=== PATIENT | female | born 1970 | race Caucasian/White ===

== ENCOUNTER 2016-05-06 10:58 | Emergency (ER) | payer BC ==
[2016-05-06 12:15] VITALS: BP 141/97
--- NOTE | 2016-05-06 12:25 | UC ---
Throat Pain/Nasal Daniel HPI - HPI Summary HPI Summary: complaint of cough , nasal congestion and sore throat that started last night today has headache cough is non- productive sore throat has resolved fever and chills last night neck and muscle aches today feels stiff today taking tylenol cold and flu and cough syrup without relief. concerned that she has the flu d/t sick co workers wants to know d/t husbands poor health status. - History of Current Complaint Chief Complaint: UCRespiratory Stated Complaint: COUGH Time Seen by Provider: 05/06/16 12:17 Hx Obtained From: Patient Hx Last Menstrual Period: iud - Allergies/Home Medications Allergies/Adverse Reactions: Allergies Allergy/AdvReac Type Severity Reaction Status Date / Time Bees Allergy Intermediate Swelling Uncoded 05/06/16 12:14 PMH/Surg Hx/FS Hx/Imm Hx Previously Healthy: Yes Endocrine History Of: Denies: Diabetes, Thyroid Disease Cardiovascular History Of: Reports: Hypertension Denies: Cardiac Disorders Respiratory History Of: Denies: COPD, Asthma GI/ History Of: Denies: Ulcer Cancer History Of: Denies: Breast Cancer - Surgical History Surgical History: Yes Surgery Procedure, Year, and Place: GB; r-knee bone spur SX; 2X deviated septum ; tonisllectomy/adenoids at 8th grade - Family History Known Family History: Positive: None Negative: Cardiac Disease, Hypertension, Diabetes - Social History Occupation: Employed Full-time Lives: With Family Alcohol Use: None Substance Use Type: None Smoking Status (MU): Never Smoked Tobacco - Immunization History Most Recent Influenza Vaccination: 2014/2015 Vaccination Up to Date: Yes Review of Systems Constitutional: Fever, Chills, Fatigue Skin: Negative Eyes: Negative ENT: Ear Ache, Nasal Discharge Respiratory: Cough Cardiovascular: Negative Gastrointestinal: Negative Genitourinary: Negative Motor: Negative Neurovascular: Negative Musculoskeletal: Negative Neurological: Negative Psychological: Negative All Other Systems Reviewed And Are Negative: Yes Physical Exam Triage Information Reviewed: Yes Appearance: No Pain Distress, Well-Nourished, Obese Vital Signs: Initial Vital Signs Temp 98.5 F 05/06/16 12:10 Pulse 96 05/06/16 12:10 Resp 18 05/06/16 12:10 BP 141/97 05/06/16 12:10 Pulse Ox 99 05/06/16 12:10 Vital Signs Reviewed: Yes Eyes: Positive: Conjunctiva Clear ENT: Positive: Pharyngeal erythema, Nasal congestion, TMs normal. Negative: TM bulging, TM red, Tonsillar swelling, Tonsillar exudate Neck: Positive: No Lymphadenopathy Respiratory: Positive: Lungs clear, Normal breath sounds, No respiratory distress Cardiovascular: Positive: RRR, No Murmur, Pulses Normal Abdomen Description: Positive: Nontender, Soft Bowel Sounds: Positive: Present Musculoskeletal: Positive: No Edema Neurological: Positive: Alert Psychological Exam: Normal Skin Exam: Normal Throat Pain/Nasal Course/Dx - Differential Dx/Diagnosis Differential Diagnosis/HQI/PQRI: Influenza, Pharyngitis, URI Provider Diagnoses: URI Discharge - Discharge Plan Condition: Stable Disposition: HOME Patient Education Materials: Upper Respiratory Infection (ED) Forms: *Work Release Referrals: Edita Maurer [Primary Care Provider] - Additional Instructions: VIRAL UPPER RESPIRATORY INFECTION (COMMON COLD) What is Viral Upper Respiratory Infection? Viral upper respiratory infection is the medical term for the common cold. Respiratory infections can be caused by either a virus or bacteria. The common cold is caused by a virus. The virus travels through the air and can be passed easily from one person to another. This is one reason that it is so important to cover your mouth when you cough or sneeze. When you cover your mouth you will get the virus on your hands. If you touch something with that hand the virus is spread to the object you touch. Because of this you should be sure to wash your hands often when you have a cold. Symptoms usually begin 1 to 3 days after the virus takes hold in your body. Other people can catch your cold even before you start to notice symptoms, which is one reason why colds are hard to prevent. Symptoms May Include: Scratchiness or tickling in the throat Sore throat Stuffy nose Generalized aches and pains Coughing or sneezing Feeling tired Treatment Recommendations: Drink plenty of clear, nonalcoholic fluids, such as water, sports drinks, or juice. For example, an average adult should drink 8 ounces every hour, a child 6 to 10 years should drink 4 ounces every hour, and a child under 6 should drink 1 to 2 ounces every hour. You should rest as much as possible. You can use a cool-mist humidifier or steam vaporizer to increase air moisture. This will make it easier to breathe. Remember that a steam vaporizer may contain hot water that can cause severe noland. If you smoke, stopsmoke irritates bronchial passages. If you are coughing up mucus, and milk seems to make the sputum thicker, do not eat or drink foods that contain milk. You want to try to cough up mucous whenever possible so that you dont get pneumonia. Do not use cough suppressant medicine without your healthcare providers [place]. You should take all medications prescribed until completely gone, or as instructed. Non-prescription medicine such as acetaminophen (Tylenol) or ibuprofen (Motrin , Advil) may help your aches, pains, and fever. Do not take someone else's medicine, or penicillin tablets that you may have saved. You could cause a more serious problem than you already have. Don't bundle up to sweat out a fever. It only makes your fever worse. If you feel cold , cover up; if you feel warm, dress lightly. Dont use non-prescription medicine with antihistamines for your cold symptoms. They may make your mouth and nose too dry, and can make the mucous you are trying to cough up too thick to cough up easily. Antihistamines are more helpful for hay fever-like symptoms.
== END 2016-05-06 13:21 | disposition home or self-care (01) ==
LOC: UCEAST 10:58
DX: J06.9 Acute upper respiratory infection, unspecified (principal)
CPT/HCPCS: 87502; 99211; G0463

== ENCOUNTER 2016-08-12 06:40 | Inpatient (IN) | payer BC, OTHER ==
--- NOTE | 2016-07-30 14:47 | HP ---
ADMISSION HISTORY AND PHYSICAL: DATE OF ADMISSION: 08/12/16 ATTENDING SURGEON: Dr. Bryson Dominguez. (dictated by JILL Diaz) CHIEF COMPLAINT: Morbid obesity. HISTORY OF PRESENT ILLNESS: This is a 45-year-old female, who first presented for bariatric evaluation in January of 2016. Her weight and dietary history are outlined in our chart record. She has been seen by the automatic coin machine mechanic and clinical psychologist. She did have lab work last September including a CBC, comprehensive metabolic profile, and TSH, all of which were in normal limits. She apparently did not have the balance of the bariatric profile and therefore that will be obtained within the next few days along with her preadmission testing. She underwent upper GI study on 01/14/16, which showed some delayed emptying of the liquid barium and a small amount of reflux. A subsequent EGD, on 05/25/16, showed a small hiatal hernia, but no evidence of chronic reflux or esophagitis. CLOtest was negative. It was not felt that manometry was necessary. She has met with Dr. Dominguez on a number of occasions and he has reviewed with her the indications for surgery, the risks, benefits, and alternatives. I have discussed with her today the expected perioperative course and she would like to proceed as scheduled with laparoscopic Elvia-en-Y gastric bypass. PAST MEDICAL HISTORY: Morbid obesity, hypertension, obstructive sleep apnea ( untreated), chronic back pain, ichthyosis vulgaris (she does not sweat), urinary incontinence. PAST SURGICAL HISTORY: Includes laparoscopic cholecystectomy, tonsillectomy and adenoidectomy, nasal septoplasty x2, right knee arthroscopy, right index finger surgery. No reported surgical or anesthesia complications. CURRENT MEDICATIONS: 1. Amlodipine 5 mg once daily. 2. Detrol LA 2 mg once daily. 3. Aleve 2 tablets b.i.d. p.r.n. for back pain (she uses about twice weekly). 4. She has a Mirena IUD. DRUG ALLERGIES: None (Percocet does cause significant nausea, but she tolerates hydrocodone). FAMILY HISTORY: Noncontributory in terms of anesthesia problems, bleeding, or clotting disorders. SOCIAL HISTORY: The patient is . She works as an cost accountant. She denies use of tobacco, drinks alcohol rarely, and denies other recreational drug use. REVIEW OF SYSTEMS: General: No recent constitutional symptoms or acute illnesses. HEENT: No problems reported. Cardiovascular: She is treated for hypertension. No history of chest pain or palpitations. She has been told at various occasions that she may have a heart murmur. No history of MS or angina. Respiratory: No history of asthma, chronic cough, or shortness of breath. She does have some environmental allergies. GI: Very rare GERD symptoms. No lower GI symptoms. She has never had a colonoscopy. : No problems reported other than urinary incontinence (she uses the Detrol usually during the work week). GENERAL SURGERY PHYSICIAN ASSISTANT: She is up to date for breast and pelvic exams within the past year. She has had mammogram within the past year. She has Mirena IUD and therefore has few if any periods. Endocrine: No diabetes or thyroid dysfunction. Musculoskeletal: She did have a left elbow fracture ( radial head) in 2015. She was evaluated recently by Dr. Ac. Neuro/Psych: Past history of depression, no current or active treatment. PHYSICAL EXAMINATION GENERAL: Well-nourished, morbidly obese female, in no acute distress. VITAL SIGNS: Height 65 inches, weight 271 pounds, BMI 45.1. Blood pressure 102 /68, pulse 72, respirations 16. HEENT: Pupils equal and round, reactive. EOMs intact. No conjunctival pallor. Oropharynx: Teeth in good repair. No intraoral lesions. NECK: No lymphadenopathy, thyromegaly, or masses. LUNGS: Clear to auscultation. No wheezes. HEART: Regular rate and rhythm. No murmur appreciated. BREASTS: Not examined. ABDOMEN: Soft, nontender to palpation. No palpable masses or organomegaly, though exam is limited by body habitus. GENITALIA: Not done. RECTAL: Not done. BACK: No spinous process or CVA tenderness. EXTREMITIES: No edema. NEUROLOGIC: Grossly intact. SKIN: Warm and dry. No suspicious rashes or lesions noted. She does have some generalized dryness and some areas of scaling. IMPRESSION: Morbid obesity. PLAN: Laparoscopic Elvia-en-Y gastric bypass. JILL RUSSELL CC: Edita Scott NP, [facility]* [id number]/[facility] #: [id number] [facility] HOSPITALKeyana
[~2016-08-12 06:40] MED LIST: Buffered Lidocaine 1% SYR 3ML* 3 ML/SYR SYRINGE INTRADERM ONE; Clindamycin 900 MG IVPREMIX(* 900 MG/50 ML SDV IV ONE; Dexamethasone IV* 4 MG/ML 1 ML (4 MG) IV SLOW PU ONE; Dexamethasone IV* 4 MG/ML 1 ML (4 MG) ONE; Famotidine IV* 10 MG/ML 2 ML (20 mg) IV ONE; Famotidine IV* 10 MG/ML 2 ML (20 mg) ONE; Heparin VIAL(*) 5000 UNITS/ML VIAL (FIVE THOUSAND) ONE; ceFAZolin 1 GM in Dextrose (*) 1 GM/50 ML BAG IVPB ONE; ceFAZolin 2 GM PREMIX(*) 2 GM/50 ML BAG IVPB ONE
[2016-08-12 07:11] LABS: Manual Entry Verification AS; UR Preg Internal Control QC Line Present; UR Preg Kit Lot# 6030156
[2016-08-12] MEDS ORDERED: Bupivacaine 0.5% W/EPI SDV* 30 ML VIAL ONE ×2 (07:22→08:55)
[2016-08-12] MEDS ORDERED: Methylene Blue 0.5 %* 50 MG/10 ML AMP IV ONE (07:22)
[2016-08-12] MEDS ORDERED: Midazolam* 1 MG/ML 2 ML VIAL (2 MG) ONE (07:44)
[2016-08-12] MEDS ORDERED: fentaNYL* 50 MCG/ML 2 ML VIAL (100 MCG VIAL) ONE ×4 (07:44→12:12)
[2016-08-12] MEDS ORDERED: Ondansetron INJ* 2 MG/ML VIAL ONE (07:45)
[2016-08-12] MEDS ORDERED: Succinylcholine* 20 MG/ML 10 ML VIAL ONE (07:45)
[2016-08-12] MEDS ORDERED: Propofol* 10 MG/ML 20 ML BTL IV PUSH ONE (07:45)
[2016-08-12] MEDS ORDERED: Lidocaine 2% PF * 5 ML VIAL ONE (07:45)
[2016-08-12] MEDS ORDERED: Ketorolac INJ* 30 MG/ML 1 ML VIAL ONE (07:45)
[2016-08-12] MEDS ORDERED: HYDROmorphone* 1 MG/ML 1 ML SYR ONE ×7 (07:47→12:52)
[2016-08-12] MEDS ORDERED: Rocuronium* 10 MG/ML VIAL ONE (07:51)
[2016-08-12] MEDS ORDERED: PROCHLORPERAZINE INJ 5 MG/ML 2 ML VIAL IV PRN (08:04)
[2016-08-12] MEDS ORDERED: DiMENhydriNATE IV* 50 MG/ML VIAL IV PUSH PRN (08:04)
[2016-08-12] MEDS ORDERED: HYDROmorphone* 1 MG/ML 1 ML SYR IV PRN (08:04)
[2016-08-12] MEDS ORDERED: Ondansetron INJ* 2 MG/ML VIAL IV PRN ×2 (08:04→12:03)
[2016-08-12] MEDS ORDERED: Scopolamine 1.5 mg* PATCH TRANSDERM PRN (08:04)
[2016-08-12] MEDS ORDERED: Meperidine SYRINGE* 50 MG/ML ONE (09:24)
[2016-08-12] MEDS ORDERED: Sevoflurane* 1 BTL ONE (10:55)
[2016-08-12] MEDS ORDERED: Desflurane* 240 ML INH ONE (10:55)
[2016-08-12] MEDS ORDERED: diPHENhydraMINE IV* 50 MG/ML 1 ml VIAL (BENADRYL) SLOW PUSH PRN (12:03)
[2016-08-12] MEDS ORDERED: HYDROcodone/ACET. 7.5/325 LIQ* 15 ML UDC PO PRN (12:03)
[2016-08-12] MEDS ORDERED: Acetaminophen ADULT LIQ* 650 MG/20.3 ML UDC PO PRN (12:03)
--- NOTE | 2016-08-12 12:03 | SURGPN ---
Brief Operative Note - Surgery Procedures: Pre-OP Diagnoses: Clinically severe obesity Post-op Diagnosis: same Procedure: Laparoscopic Elvia an Y gastric bypass Surgeon: Alberto Asst: Hugo Anethesia: RAGHU Douglas EBL: minimal UO: 250cc via sheriff IVF: 2500cc LR Specimen: none Drains: #10 JOSSUE at GJ anastomosis
[2016-08-12] MEDS ORDERED: Scopolamine 1.5 mg* PATCH ONE (12:15)
[2016-08-12] MEDS ORDERED: DiMENhydriNATE IV* 50 MG/ML VIAL ONE (12:15)
[2016-08-12] MEDS: fentaNYL* 50 MCG/ML 2 ML VIAL (100 MCG VIAL) IV PRN ×2 (12:20→12:50)
[2016-08-12] MEDS ORDERED: Famotidine IV* 10 MG/ML 2 ML (20 mg) ONE (14:27)
[2016-08-12] MEDS: Heparin VIAL(*) 5000 UNITS/ML VIAL (FIVE THOUSAND) SUBCUT SCH ×2 (14:30→22:04)
[2016-08-12] MEDS: Ketorolac INJ* 30 MG/ML 1 ML VIAL IV PRN ×2 (14:31→22:04)
[2016-08-12] MEDS: HYDROmorphone* 1 MG/ML 1 ML SYR IV PRN ×2 (18:48→23:51)
--- NOTE | 2016-08-12 20:14 | OP ---
CC: Edita Scott NP; [facility] OPERATIVE REPORT: DATE OF OPERATION: 08/12/16 DATE OF : 70 SURGEON: Bryson Dominguez MD FLAT SORTING MACHINE CLERK: Henry Arias MD ANESTHESIOLOGIST: Dr. Douglas. ANESTHESIA: General anesthesia. PRE-OP DIAGNOSES: 1. Clinically severe obesity. 2. Hypertension. 3. Obstructive sleep apnea. 4. Urinary incontinence. POST-OP DIAGNOSES: 1. Clinically severe obesity. 2. Hypertension. 3. Obstructive sleep apnea. 4. Urinary incontinence. OPERATIVE PROCEDURE: Laparoscopic Elvia-en-Y gastric bypass. INDICATIONS: Ms. Arreola is a 45-year-old female worked up as an outpatient with diagnosis of cl inically severe obesity among other comorbidities and was scheduled for same-day admission for lapar oscopic Elvia-en-Y gastric bypass. The case was again discussed with her this morning, and she agree d and consent was signed. ESTIMATED BLOOD LOSS: Minimal. IV FLUIDS: 2500 cc of crystalloid fluid given. SPECIMEN: None. URINE OUTPUT: Zuniga catheter with 250 cc out. DRAINS: JOSSUE drain at the gastrojejunostomy, #10 JOSSUE drain. COUNTS: Lap, pad count and instrument count correct at the end of the procedure. DISPOSITION: The patient extubated and transferred to the PACU in stable condition for planned handley sfer to the ICU as per protocol for untreated sleep apnea. DESCRIPTION OF PROCEDURE: The patient was taken to the operating room, placed on the operating tabl e in the supine position. Preoperative antibiotics were given. Sequential devices were placed on bi lateral lower extremities. Preoperative heparin was given. General anesthesia was delivered and a Zuniga catheter inserted, and the patient's abdomen was then prepped and draped in standard surgical fashion and a time-out was performed. Folds of the umbilicus were elevated anteriorly and a Veress needle was inserted into the abdominal cavity, which was then allowed to insufflate to a pressure of 15 mmHg. The patient tolerated the in sufflation well. [place] between the xiphoid and umbilicus, a 12-mm trocar was inserted just left of midline. Laparoscope was inserted through this and there was no evidence of injury from the trocar insertion or from the Veress needle. Review of the abdomen showed no adhesions. Additional trocar was then placed in the following position, a 5 mm and a 12 mm in the left upper quadrant and a 5 mm and a 12 mm in the right upper quadrant. Attention was turned to to the omentum. This was reflected superiorly and the transverse colon iden tified, ligament of Treitz identified, and we counted off antegrade approximately 45 cm. The bowel was transected at this site, will become the Elvia limb, was then counted off as 80 cm and an enterot mary was made at this site. The biliopancreatic limb was brought in apposition to this and another e nterotomy made at this site and the jejunojejunostomy was created with a 60-mm ESTHER stapling device. The defect was then reapproximated with interrupted 2-0 silk sutures in figure-of-8 fashion and the mesenteric defect was similarly closed. Attention was then turned to the stomach. The patient was placed in a steep reverse Trendelenburg a nd a Azar retractor was inserted and the liver was retracted anteriorly into the right. This d id not appear bulky and gave us good visualization of the gastroesophageal fat pad. This was graspe d and retracted towards the right lower quadrant. A blunt dissection was carried out to expose the left crura. Next, a retrogastric tunnel was made along the lesser curvature at approximately third crossing vess el and a 45-mm mcdermott ESTHER stapling device was fired across to start the gastric pouch. Additional 60-m m and 45-mm loaded ESTHER stapler with a mcdermott load were utilized to complete the small pouch. This was done over the Colten tube that had been inserted. Next, the small bowel was brought in apposition to the stomach pouch. It showed there was no tensio n. Stay sutures were utilized along the staple line of the gastric pouch and suturing this to the a ntimesenteric portion of the jejunum, which this would become again the Elvia limb. The Colten tube w as then placed under some pressure along the stomach pouch, and we cauterized over this to make a ga strotomy anteriorly. Enterotomy was similarly made with electrocautery and then the gastrojejunosto my was created with a 30-mm mcdermott ESTHER stapling device utilizing only 2 cm of this. Anastomosis was wi de open. Hemostasis was excellent. The common defect was reapproximated with a running 3-0 Maxon s uture starting superiorly and inferiorly and tying them in the middle. An additional 2-0 silk sutur e was utilized for a second layer. This was a U-stitch imbricating this suture line. Next, Colten tube was inserted through the anastomosis. It did cause some injury to the stapled edge of the proximal Elvia limb causing a small serosal injury there. We were able to advance it in the p amador antegrade and with clamping of the Elvia limb distal to this. Methylene blue dye test was perf ormed. The proximal Elvia limb as well as the stomach pouch distended with blue dye. The blue dye w as then suctioned off from the Colten tube as it was brought into the stomach. A gauze placed behind the anastomosis showed no evidence of blue dye and this was removed. A small corner of the stapled stomach pouch showed some mild violaceous color and we decided to dunk this with an additional 2-0 silk suture. Next, the Coltne tube was attempted to be removed, but it did not give easily. We thought this was a lready in the stomach pouch, but it proved to be just at the anastomotic site. We cut the additiona l silk suture that was placed at the stapled edge of the stomach pouch and again the one anterior si lk suture as well. This did allow the Colten tube to ultimately be backed out into the stomach and t he distal esophagus. But, this caused some injury to the suture line. The Maxon suture appeared so mewhat loose. This was brought up tighter and cut at the knot and then an additional suture placed, and this cut edge tied to it to feel more confident with the closure of the common defect between t he stomach and the small bowel. Next, an additional methylene blue dye test was performed and this time, it was notable to have blue dye along the top end of the staple line that created the gastrojejunostomy anastomosis. It became clear that this did suffer mild trauma during the attempt to remove the tube and we oversewed this with interrupted 2-0 silk sutures full thickness to short up this staple line. An additional blue d ye test was performed and this time no evidence of blue was identified and the tube was removed. It should be noted that the Colten tube still easily entered through the anastomosis throughout these t ests Please also note that the proximal Elvia limb with the serosal injury was stapled off with an [employer] nal 60-mm mcdermott ESTHER stapling device. Next, #10 JOSSUE drain was brought into the abdominal cavity and taken out through the left lateral most port site, sutured to the skin with 3-0 Surgipro suture. Abdomen was allowed to collapse. Nathans on retractor was removed. Trocars removed under direct vision and the remaining 5 skin incisions we re reapproximated with skin raman. Sterile dressing was applied. The patient was woken up in the OR and transferred to the PACU in stable condition. [id number]/[facility] #: [id number]
[2016-08-13 03:36] LABS: Hematocrit 35 % (35-47); Hemoglobin 11.4 g/dl (12.0-16.0); Mean Corpuscular HGB Conc 33 g/dl (31-36); Mean Corpuscular Hemoglobin 25 pg (27-31); Mean Corpuscular Volume 76 fL (80-97); Mean Platelet Volume 9 um3 (7.4-10.4); Red Blood Count 4.62 10^6/ul (4.0-5.4); Red Cell Distribution Width 16 % (10.5-15); White Blood Count 12.3 10^3/ul (3.5-10.8)
[2016-08-13] MEDS: Heparin VIAL(*) 5000 UNITS/ML VIAL (FIVE THOUSAND) SUBCUT SCH ×3 (05:29→23:17)
--- NOTE | 2016-08-13 10:17 | RAD ---
INDICATION: Bariatric surgery. Evaluate for obstruction/extravasation. COMPARISON: None FINDINGS: Small amount of Gastrografin was given processed and imaging of the operative site was performed. There is a normal postoperative appearance. There is no evidence of obstruction or extravasation. 0.4 minutes of fluoroscopy was utilized. CPT II Codes: 6045F (fluoro time doc)
[2016-08-13] MEDS ORDERED: D5W 1/2 NS KCl 20 Meq 1000 ML* 1,000 ML IV SCH (12:06)
--- NOTE | 2016-08-13 12:19 | PN ---
Progress Note - Progress Note SOAP: Subjective: Pt seen and examined. Doing well. No complaints. UGI just done and pt is thirsty. Objective: af vss lungs clear abdo: soft/obese/mild tenderness JOSSUE serosang No calf tenderness UGI: WNL Assessment: POD1 RYGB Plan: d/c sheriff transfer to floor bariatric clears
[2016-08-13] MEDS ORDERED: Famotidine IV* 10 MG/ML 2 ML (20 mg) ONE (13:26)
[2016-08-13] MEDS: D5W 1/2 NS 1000 ML BAG* 1,000 ML IV SCH (16:00)
[2016-08-13 16:23] VITALS: BP 147/71
[2016-08-14] MEDS: D5W 1/2 NS 1000 ML BAG* 1,000 ML IV SCH (03:13)
[2016-08-14] MEDS ORDERED: Famotidine IV* 10 MG/ML 2 ML (20 mg) ONE (03:17)
[2016-08-14] MEDS: Heparin VIAL(*) 5000 UNITS/ML VIAL (FIVE THOUSAND) SUBCUT SCH (06:15)
--- NOTE | 2016-08-14 22:29 | DS ---
DISCHARGE SUMMARY: DATE OF ADMISSION: 08/12/16 DATE OF DISCHARGE: 08/14/16 HOSPITAL COURSE: Ms. Loza is a 45-year-old female worked up as an outpatient with a diagnosis of clinically severe obesity, hypertension, obstructive sleep apnea, urinary incontinence. She presented on same day of surgery and underwent a laparoscopic anila-en-y gastric bypass procedure. Please operative report for details. The patient was transferred to the recovering room and then onto the ICU as per protocol for the patients with diagnosis of obstructive sleep apnea who are not treated. The patient was unable to tolerate CPAP treatment as an outpatient and therefore was not treated in this fashion and so was sent for monitoring in the ICU setting. Postoperative course was uneventful. On postoperative day 1, she had her Zuniga catheter removed and was maintained on n.p.o. status until she underwent an upper GI study, which showed normal findings. The patient was started on bariatric clear diet and transferred to the floor. By postoperative day 2, the patient was doing well. Denying any nausea or vomiting. She did have decreased p.o. intake, but was planned discharged on postoperative day 2 for followup in the office as an outpatient next , appointment made for 02/17/17. The patient was discharged to restart her Detrol, but converted to a non- extended release version. She was asked to hold her amlodipine as well as her Aleve and she will continue with her Mirena IUD and she was given a prescription for Lortab for pain. PHYSICAL EXAMINATION: Vital Signs: On day of discharge, physical exam was performed. The patient was afebrile. Vital signs were stable. General: Alert and oriented x3, in no apparent distress. Head, ears, eyes, nose, and throat: Normocephalic and atraumatic. Sclerae anicteric. Mucous membranes are moist. Lungs: Clear to auscultation bilaterally. Abdomen: Soft, nondistended. Mild incisional tenderness. Dressings removed. JOSSUE with serous output and this was also removed today with a dressing applied and no calf tenderness. IMPRESSION: Postoperative day 2, laparoscopic gastric bypass, doing well. PLAN: Plan is for discharge, follow up in the office next week. CC: Edita Scott NP; [facility]* [id number]/[facility] #: [id number] [facility]
[2016-08-15] MEDS ORDERED: Scopolomine PATCH Remove* 1 NOTE MISC PATCH OFF ONE (08:04)
== END 2016-08-14 11:30 | disposition home or self-care (01) | DRG 403 ==
LOC: AA 06:40 → ICU 13:08 → SSU 08-13 12:56
PROVIDERS: ADMIT Surgery; ATTEND Surgery
PROC: 0D164ZA Bypass Stomach to Jejunum, Percutaneous Endoscopic Approach (ICD-10-PCS; principal; 2016-08-12 08:30)
DX: E66.01 Morbid (severe) obesity due to excess calories (principal); K91.71 Accidental puncture and laceration of a digestive system organ or structure during a digestive system procedure; I10 Essential (primary) hypertension; G47.33 Obstructive sleep apnea (adult) (pediatric); R32 Unspecified urinary incontinence; K44.9 Diaphragmatic hernia without obstruction or gangrene; G89.29 Other chronic pain; Q80.0 Ichthyosis vulgaris; F32.9 Major depressive disorder, single episode, unspecified; Z68.42 Body mass index [BMI] 45.0-49.9, adult; M54.5 Low back pain; Y65.3 Endotracheal tube wrongly placed during anesthetic procedure
CPT/HCPCS: 36415; 74246; 81025; 85025; 94760; A9270-GY; C1776; J0330; J0690; J1100; J1170; J1240; J1644; J1885; J2250; J2405; J2704; J3010

== ENCOUNTER 2017-05-03 17:05 | Observation (INO) | payer OTHER ==
[2017-05-03] MEDS ORDERED: NS 0.9% 1000 ML* 1,000 ML IV ONE (18:02)
[2017-05-03] MEDS ORDERED: Ondansetron INJ* 2 MG/ML VIAL IV ONE (18:02)
[2017-05-03] MEDS ORDERED: Morphine INJ* 4 MG/ML 1 ML CARPUJECT IV ONE (18:02)
[2017-05-03] MEDS ORDERED: Famotidine IV* 10 MG/ML 2 ML (20 mg) IV ONE (18:02)
[2017-05-03 18:39] LABS: ABS Basophils 0.1 10^3/ul (0-0.2); ABS Eosinophils 0.1 10^3/ul (0-0.6); ABS Lymphocytes 1.6 10^3/ul (1.0-4.8); ABS Monocytes 0.7 10^3/ul (0-0.8); ABS Neutrophils 8.8 10^3/ul (1.5-7.7); ABS Nucleated RBC 0 10^3/ul; Eosinophil % 0.9 % (0-6); Hematocrit 39 % (35-47); Hemoglobin 12.6 g/dl (12.0-16.0); Lymphocyte % 14.4 % (25-47); Mean Corpuscular HGB Conc 33 g/dl (31-36); Mean Corpuscular Hemoglobin 25 pg (27-31); Mean Corpuscular Volume 77 fL (80-97); Mean Platelet Volume 9 um3 (7.4-10.4); Nucleated Red Blood Cells % 0; Platelet Count 187 10^3/ul (150-450); Red Blood Count 5.04 10^6/ul (4.0-5.4); Red Cell Distribution Width 16 % (10.5-15); White Blood Count 11.3 10^3/ul (3.5-10.8)
[2017-05-03 18:57] LABS: EGFR Non-African American 91.6 (>60)
[2017-05-03] MEDS ORDERED: Iohexol 300* (CONTRAST) 10 ML SDV IV ONE (19:24)
[2017-05-03] MEDS ORDERED: HYDROmorphone INJ* 2 MG/ML CARPUJECT SYRINGE IV SLOW PU ONE (19:31)
[2017-05-03] MEDS ORDERED: HYDROmorphone INJ* 2 MG/ML CARPUJECT SYRINGE IV PRN (20:57)
[2017-05-03] MEDS ORDERED: LANSOPRAZOLE 40 MG IV SCH (21:00)
--- NOTE | 2017-05-03 21:05 | RAD ---
INDICATION: Abdominal pain. COMPARISON: Comparison is made with a prior study from September 08, 2013. TECHNIQUE: A CT scan of the abdomen and pelvis was performed with intravenous and oral contrast following intravenous injection of 124 ml of Omnipaque 300 nonionic contrast. Contiguous axial sections were obtained from the lung bases through the symphysis pubis. Images were reconstructed in the coronal and sagittal planes. There was difficulty with the injection site of the contrast leaked on the table and images were delayed. In addition the patient could only tolerate a small amount of oral contrast. FINDINGS: There is mild atelectasis in the right lower lobe. No pleural effusion is present. The liver and spleen are normal in size without significant focal abnormality. The patient is status post cholecystectomy. The pancreas appears to be within normal limits. The kidneys and adrenal glands are normal in size. No hydronephrosis is seen. No significant focal renal abnormality is seen. The aorta is normal in caliber and demonstrates homogeneous contrast opacification. No significant enlarged retroperitoneal lymph nodes are seen. The patient appears to be status post Elvia-en-Y gastric bypass surgery. The excluded stomach is nondistended with a small amount of fluid present. There is mild distention of the jejunojejunostomy which may represent normal variation versus a low-grade partial obstruction. The small bowel and colon otherwise appear nondistended. The appendix is within normal limits. There are scattered diverticula within the colon. There is no evidence for diverticulitis or colitis. The uterus is anteverted and normal in size. There is an IUD present centrally within the uterus. No free intraperitoneal air or fluid is seen. No significant focal osseous abnormality is seen. IMPRESSION: 1. STUDY SLIGHTLY LIMITED DUE TO SUBOPTIMAL ORAL AND IV CONTRAST OPACIFICATION. 2. STATUS POST GASTRIC BYPASS SURGERY. THERE IS MILD DISTENTION OF THE JEJUNOJEJUNOSTOMY CONSISTENT WITH NORMAL VARIATION OR LOW GRADE PARTIAL OBSTRUCTION. 3. STATUS POST CHOLECYSTECTOMY.
[2017-05-03 21:31] LABS: Urine Appearance Cloudy; Urine Blood Negative (Negative); Urine Color Yellow; Urine Ketones 1+ (Negative); Urine Protein Negative (Negative); Urine Specific Gravity 1.039 (1.010-1.030); Urine Urobilinogen Positive (Negative)
--- NOTE | 2017-05-03 22:40 | ED ---
Bette Rubio Gabriel, scribed for Luis Resendiz MD on 05/03/17 at 1759 . Abdominal Pain/Female - HPI Summary HPI Summary: This patient is a 46 year old F presenting to [facility] accompanied by her with a chief complaint of ABD pain that began at 1300 today. The patient rates the pain 9/10 in severity and located in the midline of her abdomen. Patient reports nausea. Patient denies v/d. Patient has had a cholecystectomy and in the last year has had gastric bypass. - History of Current Complaint Chief Complaint: EDAbdPain Stated Complaint: ABD PAIN Time Seen by Provider: 05/03/17 17:35 Hx Obtained From: Patient Hx Last Menstrual Period: iud Onset/Duration: Lasting Hours, Still Present Timing: Constant Severity Initially: Severe Severity Currently: Severe Pain Intensity: 9 Pain Scale Used: 0-10 Numeric - 7 Location: Epigastric, Other - midline Radiates: No Radiates to: Other - no radiation Character: Sharp Aggravating Factor(s): Nothing Alleviating Factor(s): Nothing Associated Signs and Symptoms: Positive: Decreased Appetite, Nausea. Negative: Diaphoresis, Fever, Chest Pain, Back Pain, Urinary Symptoms, Vomiting, Diarrhea Allergies/Adverse Reactions: Allergies Allergy/AdvReac Type Severity Reaction Status Date / Time No Known Drug Allergy Allergy See Comment Verified 08/12/16 13:16 Acetaminophen [From Percocet] AdvReac Nausea Verified 08/12/16 13:19 Oxycodone [From Percocet] AdvReac Nausea Verified 08/12/16 13:20 Bees Allergy Intermediate Swelling Uncoded 08/12/16 06:59 Home Medications: Home Medications Biotin 1 mg PO DAILY 05/03/17 [History Confirmed 05/03/17] Multivitamins/Minerals TAB* [Theragran/minerals TAB*] 1 tab PO DAILY 05/03/17 [ History Confirmed 05/03/17] PMH/Surg Hx/FS Hx/Imm Hx Endocrine/Hematology History: Denies: Hx Diabetes, Hx Thyroid Disease, Hx Anemia, Hx Unexplained Bleeding Cardiovascular History: Reports: Hx Hypertension Denies: Hx Aneurysm, Hx Angina, Hx Angioplasty, Hx Auto Implanted Cardiovert Defib, Hx Cardiac Arrest, Hx Cardiomegaly, Hx Congenital Heart Disease, Hx Congestive Heart Failure, Hx Coronary Artery Disease, Hx Deep Vein Thrombosis, Hx Embolism, Hx Hypercholesterolemia, Hx Hypotension, Hx Pacemaker/ICD, Hx Peripheral Vascular Disease, Hx Rheumatic Fever, Hx Syncope, Hx Valvular Heart Disease, Other Cardiovascular Problems/Disorders Respiratory History: Reports: Hx Seasonal Allergies, Hx Sleep Apnea - no machine Denies: Hx Asthma, Hx Chronic Bronchitis, Hx Chronic Obstructive Pulmonary Disease (COPD), Hx Cystic Fibrosis, Hx Lung Cancer, Hx Pleural Effusion, Hx Pneumonia, Hx Pulmonary Edema, Hx Pulmonary Embolism, Other Respiratory Problems /Disorders GI History: Denies: Hx Ulcer Comment Only: Other GI Disorders - GB stones; removed History: Reports: Other Problems/Disorders - bladder leakeage on detrol Denies: Hx Acute Renal Failure, Hx Benign Prostatic Hyperplasia, Hx Chronic Renal Failure, Hx Dialysis, Hx Kidney Infection, Hx Kidney Stones Musculoskeletal History: Reports: Hx Arthritis, Hx Back Problems, Other Musculoskeletal History - r knee sx; Lower back issues Denies: Hx Bursitis, Hx Congenital Bone Abnormalities, Hx Fibromyalgia, Hx Gout, Hx Orthopedic Injury, Hx Osteoporosis, Hx Scoliosis, Hx Tendonitis Sensory History: Reports: Hx Contacts or Glasses Denies: Hx Hearing Aid Opthamlomology History: Reports: Hx Contacts or Glasses Psychiatric History: Reports: Hx Depression - no medication, has improved Denies: Hx Anxiety, Hx Attention Deficit Hyperactivity Disorder, Hx Eating Disorder, Hx Panic Disorder, Hx Post Traumatic Stress Disorder, Hx Inpatient Treatment, Hx Community Mental Health Tx, Hx Schizophrenia, Hx Bipolar Disorder , Hx Suicide Attempt, Hx of Violent Episodes Against Others, Hx Substance Abuse , Other Psychiatric Issues/Disorders - Cancer History Hx Chemotherapy: No Hx Radiation Therapy: No - Surgical History Surgery Procedure, Year, and Place: Gastric Bypass; r-knee bone spur SX; 2X deviated septum; tonisllectomy/adenoids at 8th grade Hx Anesthesia Reactions: No - Immunization History Date of Influenza Vaccine: 01/19 Infectious Disease History: No Infectious Disease History: Reports: Hx Shingles Denies: Hx Hepatitis, Hx Human Immunodeficiency Virus (HIV), Hx Tuberculosis , History Other Infectious Disease, Traveled Outside the [place] in Last 30 Days - Family History Known Family History: Negative: Cardiac Disease, Hypertension, Diabetes, Respiratory Disease - Social History Occupation: Employed Full-time Lives: With Family Alcohol Use: None Substance Use Type: Reports: None Smoking Status (MU): Never Smoked Tobacco Review of Systems Negative: Fever Positive: Abdominal Pain, Nausea. Negative: Vomiting, Diarrhea Negative: Slurred Speech All Other Systems Reviewed And Are Negative: Yes Physical Exam - Summary Physical Exam Summary: Appearance: Well-appearing, no distress, Well-nourished Skin: Warm, color reflects adequate perfusion Head: Normal Head/Face inspection Eyes: Conjunctiva clear ENT: Normal inspection Neck: Supple, no nodes, no JVD. Respiratory: Lungs clear, Normal breath sounds, no respiratory distress Cardio: RRR, No murmur, pulses normal, brisk capillary refill Abdomen: soft, no guarding, no rebound, mildly TTP in epigastrium. Negative murphys sign Bowel sounds: present Musculoskeletal: Strength Intact/ ROM intact. No calf tenderness. No edema. Neuro: Alert, muscle tone normal, facial symmetry, speech normal, sensory/motor intact Psychological: Normal Triage Information Reviewed: Yes Vital Signs On Initial Exam: Initial Vitals Temp Pulse Resp BP Pulse Ox 97.4 F 63 20 138/81 100 05/03/17 17:17 05/03/17 17:17 05/03/17 17:17 05/03/17 17:17 05/03/17 17:17 Vital Signs Reviewed: Yes Appearance: Positive: Well-Appearing Diagnostics - Vital Signs Vital Signs Temp Pulse Resp BP Pulse Ox 05/03/17 17:17 97.4 F 63 20 138/81 100 - Laboratory Lab Results: Lab Results 05/03/17 05/03/17 Range/Units 18:20 18:20 WBC 11.3 H (3.5-10.8) 10^3/ul RBC 5.04 (4.0-5.4) 10^6/ul Hgb 12.6 (12.0-16.0) g/dl Hct 39 (35-47) % MCV 77 L (80-97) fL MCH 25 L (27-31) pg MCHC 33 (31-36) g/dl RDW 16 H (10.5-15) % Plt Count 187 (150-450) 10^3/ul MPV 9 (7.4-10.4) um3 Neut % (Auto) 77.8 (38-83) % Lymph % (Auto) 14.4 L (25-47) % [place] % (Auto) 6.4 (1-9) % Eos % (Auto) 0.9 (0-6) % Baso % (Auto) 0.5 (0-2) % Absolute Neuts (auto) 8.8 H (1.5-7.7) 10^3/ul Absolute Lymphs (auto) 1.6 (1.0-4.8) 10^3/ul Absolute Monos (auto) 0.7 (0-0.8) 10^3/ul Absolute Eos (auto) 0.1 (0-0.6) 10^3/ul Absolute Basos (auto) 0.1 (0-0.2) 10^3/ul Absolute Nucleated RBC 0 10^3/ul Nucleated RBC % 0 Sodium 138 (133-145) mmol/L Potassium 3.6 (3.5-5.0) mmol/L Chloride 102 (101-111) mmol/L Carbon Dioxide 28 (22-32) mmol/L Anion Gap 8 (2-11) mmol/L BUN 13 (6-24) mg/dL Creatinine 0.69 (0.51-0.95) mg/dL Est GFR ( Amer) 117.8 (>60) Est GFR (Non-Af Amer) 91.6 (>60) BUN/Creatinine Ratio 18.8 (8-20) Glucose 100 (70-100) mg/dL Calcium 8.9 (8.6-10.3) mg/dL Total Bilirubin 0.60 (0.2-1.0) mg/dL AST 17 (13-39) U/L ALT 12 (7-52) U/L Alkaline Phosphatase 95 (34-104) U/L Total Protein 7.1 (6.4-8.9) g/dL Albumin 4.1 (3.2-5.2) g/dL Globulin 3.0 (2-4) g/dL Albumin/Globulin Ratio 1.4 (1-3) Lipase 15 (11.0-82.0) U/L Beta HCG, Quant 0.63 mIU/mL Result Diagrams: 05/03/17 18:20 05/03/17 18:20 Lab Statement: Any lab studies that have been ordered have been reviewed, and results considered in the medical decision making process. - CT CT ABD/Pelvis CT Interpretation Completed By: Radiologist - 1. STUDY SLIGHTLY LIMITED DUE TO SUBOPTIMAL ORAL AND IV CONTRAST OPACIFICATION. 2. STATUS POST GASTRIC BYPASS SURGERY. THERE IS MILD DISTENTION OF THE JEJUNOJEJUNOSTOMY CONSISTENT WITH NORMAL VARIATION OR LOW GRADE PARTIAL OBSTRUCTION. 3. STATUS POST CHOLECYSTECTOMY. ED physician has reviewed this radiology report. Re-Evaluation - Re-Evaluation First Eval Re-Evaluation Time: 19:31 Change: Unchanged - Pt states she continues to have upper abdominal pain. Will give second dose IV analagesia and await CT. Second Eval Re-Evaluation Time: 20:31 Change: Improved - Pt's abdominal pain improved. pt awaiting Ct results. Pt seen and examined by Dr. Dominguez (Gen Surgery), plan for admission and possible surgcial procedure in the am. Abdominal Pain Fem Course/Dx - Diagnoses Differential Diagnosis: Positive: Appendicitis, Bowel Obstruction, Diverticulitis, Gall Bladder Disease, Pancreatitis, Pelvic Inflammatory Disease , Peptic Ulcer Disease, Urinary Tract Infection Provider Diagnoses: Abdominal pain - Provider Notifications Discussed Care Of Patient With: Bryson Dominguez Time Discussed With Above Provider: 19:59 Instructed by Provider To: Admit As Observation - We discussed patient care with Dr. Dominguez and who suggests possible OR tonight. 21:03 Dr. Dominguez has agreed to admit the patient to his care and will operate in the morning. Until then he would like her to stay in short stay. Discharge - Discharge Plan Condition: Improved Disposition: ADMITTED TO [facility] The documentation as recorded by the Bette dinero Gabriel accurately reflects the service I personally performed and the decisions made by , Luis Resendiz MD.
[2017-05-03] MEDS: HYDROmorphone INJ* 2 MG/ML CARPUJECT SYRINGE IV PRN (22:46)
--- NOTE | 2017-05-03 23:24 | HP ---
CC: Edita Scott NP; [facility] * HISTORY AND PHYSICAL: DATE OF ADMISSION: 05/03/17 HISTORY OF PRESENT ILLNESS: Ms. Loza is a 46-year-old female who is 8 months status post Elvia-en-Y gastric bypass procedure for diagnosis of clinically severe obesity, hypertension, obstructive sleep apnea. The patient' s postoperative course is uneventful and she has notably lost 65 pounds since surgery. The patient presented today to the emergency room with acute onset of abdominal pain mostly in the upper abdomen and left upper quadrant after eating lunch. She did not eat anything different than her normal meals. Pain was severe, would give minimal resolution, but stay at a range of 8 to 9/10. She did not have any nausea, but she had no appetite. She was passing flatus. The patient' s pain is relieved with lying down. She did receive multiple doses of morphine with no relief, then Dilaudid and this settled her somewhat. PAST MEDICAL HISTORY: Hypertension, chronic back pain, ichthyosis vulgaris and urinary incontinence. PAST SURGICAL HISTORY: As above laparoscopic Elvia-en-y gastric bypass in August 2016, she had laparoscopic cholecystectomy, tonsillectomy and adenoidectomy. Right knee surgery, right index surgery. CURRENT MEDICATIONS: Include vitamins. ALLERGIES: OXYCODONE and ACETAMINOPHEN. SOCIAL HISTORY: She is a nonsmoker. She works as an gl accountant. PHYSICAL EXAMINATION GENERAL: She is alert and oriented x3, in no apparent distress. VITAL SIGNS: Stable. She is afebrile. Blood pressure 138/81, pulse rate 63. LUNGS: Clear. ABDOMEN: Soft, obese, tender on deep palpation in the epigastrium and the right upper quadrant. No rebound. No masses or hernias. RECTAL: Not performed. EXTREMITIES: Within normal limits. DIAGNOSTIC STUDIES/LAB DATA: Labs reviewed, show a white count mildly elevated at 11. Complete metabolic panel including lipase is within normal limits. CT scan is performed with p.o. contrast only and still being reviewed by the radiologist. I do not see any free fluid or free air. No significantly dilated bowel, but some mild dilated portions. She does have a colon full of stool. IMPRESSION: Acute onset of abdominal pain 8 months status post Elvia-en-y gastric bypass, concern primary differential would be internal hernia. Other concerns would be marginal ulceration. I did review the op note, then patient' s H and P prior to the surgical intervention. My impression at this point is IV fluids, admission, rest, anti-nausea medication, narcotics for pain and likely diagnostic laparoscopy in the morning if no significant improvement. I did outline this to the patient who agrees. [id number]/[facility] #: [id number] MTDKeyana
[2017-05-04] MEDS: HYDROmorphone INJ* 2 MG/ML CARPUJECT SYRINGE IV PRN ×2 (02:23→07:53)
[2017-05-04] MEDS: Ondansetron INJ* 2 MG/ML VIAL IV PRN ×2 (03:53→07:53)
[2017-05-04 05:26] LABS: ABS Basophils 0 10^3/ul (0-0.2); ABS Eosinophils 0.1 10^3/ul (0-0.6); ABS Lymphocytes 1.8 10^3/ul (1.0-4.8); ABS Monocytes 0.6 10^3/ul (0-0.8); ABS Neutrophils 4.2 10^3/ul (1.5-7.7); ABS Nucleated RBC 0 10^3/ul; Hematocrit 32 % (35-47); Hemoglobin 10.7 g/dl (12.0-16.0); Lymphocyte % 26.8 % (25-47); Mean Corpuscular HGB Conc 34 g/dl (31-36); Mean Corpuscular Hemoglobin 26 pg (27-31); Mean Corpuscular Volume 77 fL (80-97); Mean Platelet Volume 9 um3 (7.4-10.4); Nucleated Red Blood Cells % 0; Platelet Count 158 10^3/ul (150-450); Red Blood Count 4.13 10^6/ul (4.0-5.4); Red Cell Distribution Width 16 % (10.5-15); White Blood Count 6.9 10^3/ul (3.5-10.8)
[2017-05-04] MEDS ORDERED: Pantoprazole IV* 40 MG IV SCH (09:00)
[2017-05-04] MEDS ORDERED: Bupivacaine 0.25% SDV* 30 ML ONE (09:45)
[2017-05-04] MEDS ORDERED: Sodium Citrate/Citric Acid* 15 ML UDC ONE (10:03)
[2017-05-04] MEDS ORDERED: Sodium Citrate/Citric Acid* 15 ML UDC PO ONE (10:04)
[2017-05-04] MEDS ORDERED: Naloxone* 0.4 MG/ML 1 ML VIAL IV PRN (10:05)
[2017-05-04] MEDS ORDERED: fentaNYL* 50 MCG/ML 2 ML VIAL (100 MCG VIAL) IV PRN (10:05)
[2017-05-04] MEDS ORDERED: Propofol* 10 MG/ML 20 ML BTL IV PUSH ONE (10:11)
[2017-05-04] MEDS ORDERED: Lidocaine 2% PF * 5 ML VIAL ONE (10:12)
[2017-05-04] MEDS ORDERED: Rocuronium* 10 MG/ML VIAL ONE (10:12)
[2017-05-04] MEDS ORDERED: fentaNYL* 50 MCG/ML 2 ML VIAL (100 MCG VIAL) ONE (10:13)
[2017-05-04] MEDS ORDERED: Neostigmine Methylsulfate* 2 MG/2 ML SYRINGE ONE (11:12)
[2017-05-04] MEDS ORDERED: Dexamethasone IV* 4 MG/ML 1 ML (4 MG) ONE (11:12)
[2017-05-04] MEDS ORDERED: Glycopyrrolate IV* 0.2 MG/ML 1 ML VIAL ONE (11:12)
--- NOTE | 2017-05-04 11:29 | BRIEFOPN ---
Brief Operative Note - Surgery Procedures: Procedures Pre-OP Diagnoses: abdominal pain, r/o internal hernia Post-op Diagnosis: abdominal traore Procedure: Diagnostic laparoscopy Surgeon: Alberto Morgant: Chaka KRISHNAMURTHY EBL: minimal IVF: minimal Specimen: none Drains: none Findings none Complications: None
[2017-05-04] MEDS ORDERED: Ketorolac INJ* 15 MG/ML 1 ML VIAL IV PUSH ONE (11:33)
[2017-05-04 12:07] VITALS: BP 119/71
--- NOTE | 2017-05-05 00:25 | OP ---
CC: Edita Scott NP; [facility] * DATE OF OPERATION: 05/04/17 - ROOM #351 DATE OF : 70 SURGEON: Bryson Dominguez MD [employer] COUNCIL MEMBER: JILL Wood ANESTHESIOLOGIST: Dr. Iyer. ANESTHESIA: General. PRE-OP DIAGNOSES: Abdominal pain, rule out internal hernia. POST-OP DIAGNOSES: Abdominal pain. OPERATIVE PROCEDURE: Diagnostic laparoscopy. ESTIMATED BLOOD LOSS: Minimal. IV FLUIDS: Minimal crystalloid fluid given. SPECIMEN: None. FINDINGS: None. DESCRIPTION OF PROCEDURE: Ms. Loza is a 46-year-old female, status post Anila-en-Y gastric bypass procedure, who presented yesterday with acute onset of abdominal pain. She was admitted in the overnight. She underwent CAT scan of the abdomen and pelvis and IV fluids along with labs. My concern is that the patient's abdominal pain persisted today and recommended diagnostic laparoscopy to rule out an internal hernia. I outlined the details of the procedure going over risks, benefits and alternatives and patient wished to proceed. We spoke of the possible complications which included, but not limited to bleeding, infection, bowel injury, need for additional surgery or procedures, need for open procedure and the possibility of not finding a diagnosis. The patient was marked in the preoperative area, brought to the operating room, and placed on the operating table in the supine position. Preoperative antibiotics were given. Sequential devices were placed on bilateral lower extremities. General anesthesia was induced. The patient's abdomen was prepped and draped in a standard surgical fashion. A time-out was performed. Folds of the umbilicus were elevated anteriorly and a Veress needle was inserted through the abdominal cavity which was then allowed to inflate to pressure of 15 mmHg. The patient tolerated the insufflation well. A supraumbilical incision was made. A 5 mm trocar was inserted through this site and laparoscope was inserted. There was no evidence of injury from the trocar insertion or from the Veress needle, which had been removed. Two additional 5 mm trocars were then placed, 5 mm in the left lower quadrant and a 5 mm in the right upper quadrant. Review of the abdomen showed normal viable pink bowel that showed peristalsis. There was no free fluid. There was no dilated bowel. Attention was turned towards to the cecum, terminal ileum was identified and run retrograde to the jejunojejunostomy. There appeared to be no twisting. There appeared to be no injury. We then tracked the biliopancreatic limb retrograde to the ligament of Treitz and there appeared to be no abnormalities at the site either and the Anila limb was also run and everything seemed to be in its proper orientation. Attention was turned towards to the gastrojejunostomy. We did take some flimsy adhesions to the anterior abdominal wall with scissors to allow us to better see up into the area of the stomach pouch. There appeared to be no inflammation , no fibrinous exudate at this site. We looked at the retro anila space and this was wide open, but I did not decide to close this as it appeared to not be a current problem. Gallbladder had been surgically removed and the liver appeared within normal limits. Attention was then turned towards the jejunojejunostomy again. The suture closures at the mesenteric defect were still intact. At the base, there was a small area that showed may be a 5 mm opening. I brought this together with a 5 mm clip manufacturing machine operator. We also used the 5 mm clip manufacturing machine operator at an area at the mesenteric site of the biliopancreatic limp just towards the ligament of Treitz. It appeared to show some serosal changes. We brought the serosal edges together with this. The abdomen was then allowed to collapse. Trocars removed under direct vision. Hemostasis was excellent. All t hree skin incisions were reapproximated with 4-0 Monocryl subcuticular sutures followed by sterile dressings. The patient tolerated the procedure well, was woken up in the OR and transferred to PACU in stable condition. [id number]/[facility] #: [id number] FRED
== END 2017-05-04 13:08 | disposition home or self-care (01) ==
LOC: ED 17:05 → SSU 20:57
PROVIDERS: ADMIT Surgery; ATTEND Surgery
DX: R10.9 Unspecified abdominal pain (principal); R11.0 Nausea; Z86.79 Personal history of other diseases of the circulatory system; Z98.84 Bariatric surgery status; Z90.49 Acquired absence of other specified parts of digestive tract
CPT/HCPCS: 36415; 74177; 80053; 81003; 83690; 84702; 85025; 96374; 96375; 99284; A9270-GY; G0378; J1100; J1170; J2270; J2405; J2704; J3010; Q9967

== ENCOUNTER 2018-01-05 12:44 | Inpatient (IN) | payer OTHER ==
[~2018-01-05 12:44] MED LIST changes: +Buffered Lidocaine 0.9% SYRIN* 5 ML/SYR SYRINGE INTRADERM ONE; -Buffered Lidocaine 1% SYR 3ML* 3 ML/SYR SYRINGE INTRADERM ONE; -Clindamycin 900 MG IVPREMIX(* 900 MG/50 ML SDV IV ONE; -Dexamethasone IV* 4 MG/ML 1 ML (4 MG) ONE; -Famotidine IV* 10 MG/ML 2 ML (20 mg) IV ONE; -Famotidine IV* 10 MG/ML 2 ML (20 mg) ONE; -Heparin VIAL(*) 5000 UNITS/ML VIAL (FIVE THOUSAND) ONE; -ceFAZolin 1 GM in Dextrose (*) 1 GM/50 ML BAG IVPB ONE; -ceFAZolin 2 GM PREMIX(*) 2 GM/50 ML BAG IVPB ONE
[2018-01-05] MEDS ORDERED: Heparin VIAL(*) 5000 UNITS/ML VIAL (FIVE THOUSAND) ONE (12:52)
[2018-01-05] MEDS ORDERED: Dexamethasone IV* 4 MG/ML 1 ML (4 MG) ONE ×2 (12:53→13:42)
[2018-01-05] MEDS ORDERED: Buffered Lidocaine 0.9% SYRIN* 5 ML/SYR SYRINGE ONE (12:53)
[2018-01-05] MEDS ORDERED: ceFAZolin 2 GM in NS PREMIX(*) 2 GM/100 ML BAG IVPB ONE (12:53)
[2018-01-05] MEDS ORDERED: fentaNYL* 50 MCG/ML 2 ML VIAL (100 MCG VIAL) ONE ×4 (13:42→18:58)
[2018-01-05] MEDS ORDERED: KETAMINE HCL* 50 MG/ML 10 ML VIAL ONE (13:42)
[2018-01-05] MEDS ORDERED: Midazolam* 1 MG/ML 5 ML VIAL (5 MG) ONE (13:42)
[2018-01-05] MEDS ORDERED: Rocuronium* 10 MG/ML VIAL ONE (13:42)
[2018-01-05] MEDS ORDERED: Lidocaine 2% PF * 5 ML VIAL ONE (13:42)
[2018-01-05] MEDS ORDERED: Ondansetron INJ* 2 MG/ML VIAL ONE ×2 (13:42→18:40)
[2018-01-05] MEDS ORDERED: Propofol* 10 MG/ML 20 ML BTL IV PUSH ONE (13:42)
[2018-01-05] MEDS ORDERED: Methylene Blue 0.5 %* 50 MG/10 ML AMP IV ONE (14:07)
[2018-01-05] MEDS ORDERED: Bupivacaine 0.25% EPI 200,000* 30 ML SDV ONE ×2 (14:07→15:27)
[2018-01-05] MEDS ORDERED: EPHEDrine (Pressors)* 50 MG/ML VIAL ONE (16:01)
[2018-01-05] MEDS ORDERED: Naloxone* 0.4 MG/ML 1 ML VIAL IV PRN (18:04)
[2018-01-05] MEDS ORDERED: Ondansetron INJ* 2 MG/ML VIAL IV PRN (18:04)
[2018-01-05] MEDS: fentaNYL* 50 MCG/ML 2 ML VIAL (100 MCG VIAL) IV PRN ×4 (18:22→19:11)
[2018-01-05] MEDS ORDERED: diPHENhydraMINE IV* 50 MG/ML 1 ml VIAL (BENADRYL) SLOW PUSH PRN (18:32)
[2018-01-05] MEDS ORDERED: Ketorolac INJ* 30 MG/ML 1 ML VIAL IV PRN (18:32)
[2018-01-05] MEDS ORDERED: HYDROmorphone INJ* 2 MG/ML CARPUJECT SYRINGE IV PRN (18:32)
[2018-01-05] MEDS ORDERED: Acetaminophen ADULT LIQ* 650 MG/20.3 ML UDC PO PRN (18:32)
--- NOTE | 2018-01-05 18:32 | BRIEFOPN ---
Brief Operative Note - Surgery Procedures: Procedures Pre-OP Diagnoses: refractory marginal ulcer Post-op Diagnosis: same Procedure: laparoscopic revision of gastrojejunostomy Surgeon: Alberto Asst: Mecomari Anethesia: GETA Toal EBL: 100cc IVF: 2L crystalloid Specimen: gastrojejunostomy Drains: #10 JOSSUE drain Zuniga: 400cc
[2018-01-05] MEDS: HYDROmorphone INJ1* 1 MG/ML SYRINGE IV PRN (22:05)
[2018-01-05] MEDS: Famotidine IV* 10 MG/ML 2 ML (20 mg) IV SLOW PU SCH (22:06)
[2018-01-05] MEDS: Heparin VIAL(*) 5000 UNITS/ML VIAL (FIVE THOUSAND) SUBCUT SCH (22:09)
[2018-01-06] MEDS: HYDROmorphone INJ1* 1 MG/ML SYRINGE IV PRN (05:05)
[2018-01-06] MEDS: Ondansetron INJ* 2 MG/ML VIAL IV PRN ×2 (05:13→16:13)
[2018-01-06] MEDS: Heparin VIAL(*) 5000 UNITS/ML VIAL (FIVE THOUSAND) SUBCUT SCH ×3 (05:15→21:03)
[2018-01-06 05:39] LABS: ABS Basophils 0 10^3/ul (0-0.2); ABS Eosinophils 0 10^3/ul (0-0.6); ABS Lymphocytes 0.9 10^3/ul (1.0-4.8); ABS Monocytes 0.5 10^3/ul (0-0.8); ABS Nucleated RBC 0 10^3/ul; Eosinophil % 0 % (0-6); Hematocrit 34 % (35-47); Hemoglobin 12.1 g/dl (12.0-16.0); Lymphocyte % 9.5 % (25-47); Mean Corpuscular HGB Conc 35 g/dl (31-36); Mean Corpuscular Hemoglobin 31 pg (27-31); Mean Corpuscular Volume 87 fL (80-97); Mean Platelet Volume 10.2 um3 (7.4-10.4); Nucleated Red Blood Cells % 0.1; Platelet Count 141 10^3/ul (150-450); Red Blood Count 3.95 10^6/ul (4.00-5.40); Red Cell Distribution Width 12 % (10.5-15); White Blood Count 9.4 10^3/ul (3.5-10.8)
[2018-01-06] MEDS: Famotidine IV* 10 MG/ML 2 ML (20 mg) IV SLOW PU SCH ×2 (08:18→21:06)
--- NOTE | 2018-01-06 08:33 | RAD ---
HISTORY: r/o leak, status post gastric bypass and gastrojejunal ulcer COMPARISONS: August 13, 2016, CT dated May 03, 2017 TECHNIQUE: A single contrast fluoroscopic study was performed of the esophagus and upper GI tract. Water-soluble liquid contrast was administered under fluoroscopic observation. Multiple digital spot images were obtained Total fluoroscopy time is 0.8 minutes . FINDINGS: ESOPHAGUS: The esophagus is normal in contour, course, and caliber. There is no stricture or web. Contrast passes easily through the gastroesophageal junction into the stomach. There is normal esophageal motility. STOMACH: The patient is status post gastric bypass. There is moderate luminal narrowing at the site of gastrojejunostomy, though contrast does pass relatively rapidly through the side anastomosis. There is spontaneous gastroesophageal reflux to the mid third of the esophagus. DUODENUM: The patient is status post gastric bypass SMALL BOWEL: The visualized small bowel is unremarkable.. IMPRESSION: 1. STATUS POST GASTRIC BYPASS. 2. THERE IS NARROWING OF THE LUMEN AT THE SITE OF GASTROJEJUNOSTOMY, WITHOUT APPRECIABLE OBSTRUCTION. THERE IS SPONTANEOUS GASTROESOPHAGEAL REFLUX TO THE MID THIRD OF THE ESOPHAGUS. 3. THERE IS NO APPRECIABLE EXTRAVASATION. CPT II Codes: G9500
--- NOTE | 2018-01-06 10:32 | PN ---
Progress Note - Progress Note Date of Service: 01/06/18 SOAP: Subjective:pod#1 lap revision GJ anastamosis ambulating,using inspiron,good pain control but wants dose decreased as it "knocks me out";back from UGI [] Objective:afeb;VSS;lungs:clear anterior;heart:RRR;abd:hypoactive bs,soft, incisions intact with dressings,no erythema or drainage;JOSSUE intact,sanguinous;ext :nontender,no edema;sheriff large output [] Assessment:stable POD#1;UGI series,no extravasation [] Plan:start shira clears,d/c sheriff,ambulate,inspiron,decrease Dilaudid dose,try Toradol []
[2018-01-06] MEDS ORDERED: HYDROmorphone INJ1* 1 MG/ML SYRINGE IV PRN (10:33)
[2018-01-06] MEDS: HYDROcodone/ACET. 7.5/325 LIQ* 15 ML UDC PO PRN (18:02)
[2018-01-06] MEDS: D5W 1/2 NS KCl 20 Meq 1000 ML* 1,000 ML IV SCH (18:14)
[2018-01-07] MEDS: HYDROcodone/ACET. 7.5/325 LIQ* 15 ML UDC PO PRN (00:03)
[2018-01-07] MEDS: D5W 1/2 NS KCl 20 Meq 1000 ML* 1,000 ML IV SCH ×2 (02:13→08:47)
--- NOTE | 2018-01-07 03:13 | OP ---
CC: [facility] Metabolic and Bariatric Surgery; Edita ScottTAISHA * DATE OF OPERATION: 01/05/18 - ROOM #352 DATE OF : 70 SURGEON: Bryson Dominguez MD ORACLE DATABASE DEVELOPER: Hugo. ANESTHESIOLOGIST: Dr. Ruby. ANESTHESIA: General. PRE-OP DIAGNOSIS: Refractory marginal ulcer, status post gastric bypass. POST-OP DIAGNOSIS: Refractory marginal ulcer, status post gastric bypass. OPERATIVE PROCEDURE: Laparoscopic revision of a gastrojejunostomy. ESTIMATED BLOOD LOSS: 100 cc. IV FLUIDS: 2 L of crystalloid fluid given. SPECIMEN: Gastrojejunostomy. DRAINS: A #10 JOSSUE drain left at the surgical site and a Zuniga catheter which drained 400 cc urine. INDICATIONS: Ms. Loza is a 47-year-old female, a year and a half status post Elvia-en-Y gastric bypass with good results regarding weight loss, but noted that she would have persistent ulcerations that were symptomatic, requiring proton pump inhibitors without a significant amount of relief. Decision was made to revise the gastrojejunostomy for relief of this and to see if could improve the patient's symptoms. The patient was seen in the preoperative area. She was marked, consent was signed. Case was discussed with her and her family members again. DESCRIPTION OF PROCEDURE: She was brought to the operating room, placed on the operating table in supine position. Preoperative antibiotics given. Sequential devices placed on bilateral lower extremities, general anesthesia was induced. The patient's abdomen was prepped and draped in a standard surgical fashion and a time-out was performed. A Zuniga catheter had been inserted. Folds of the umbilicus were elevated anteriorly and a Veress needle inserted at the abdomen, which was allowed to insufflate to a pressure of 15 mmHg. A 12-mm trocar was inserted through the previous upper midline site. The laparoscope was inserted through this and there was no evidence of injury from the trocar insertion or from the Veress needle. Review of the abdomen showed only adhesions to the stomach and the liver. No other significant adhesions. Additional trocar was then placed in the same places at the right upper quadrant and left upper quadrant, these consisted both 12 mm and 5 mm trocars. The patient was placed in a steep reverse Trendelenburg, a Azar retractor was inserted through the subxiphoid incision, but we could not necessarily retract the liver at this point as it was adhered to the gastrojejunostomy. Next, sharp dissection was used to remove both proximal small bowel and stomach pouch from the edge of the liver. Once this was performed, we could place the liver retractor in the appropriate positioning and draw this up anteriorly. The gastric pouch was also sharply dissected from the gastric remnant. No fistulas were identified. Review of the Elvia limb did not show any evidence of tension, appeared intact. The only significant changes were this difficult adherence to the liver edge that was taken down sharply. Next, the mesentry of the proximal Elvia limb was taken with LigaSure device and then a 60 mm mcdermott GI stapling device was fired across this through healthy tissue , removing only a small portion of this proximal Elvia limb. This fell back down into the abdomen. We then dissected from this portion of the small bowel up into the stomach pouch. We cleared up the posterior aspect and took some of the vasculature along the lesser curvature to allow for 60 mm purple GI stapling device to be fired through healthy stomach. Once this was performed, we reviewed the stomach pouch. It did show some enlargement posteriorly, but this did not lend itself to something that could be easily made smaller. It was narrow but did have this somewhat bulbous area posteriorly. Next, the small bowel was brought in apposition to the stomach pouch. It came without tension. We then sutured it with silk sutures to support this and then over an Colten tube, we made a gastrotomy. An enterotomy was also made and the two were mated with a 30 mm mcdermott GI stapling device using the entire load. Next, the defect was reapproximated with running 3-0 PDS suture starting superiorly and also inferiorly and tying into the middle. Next, we attempted to place the Colten tube through the anastomosis which we had already seen was widely patent, but because of this portion posteriorly, we could not easily direct the stiff tubing through the anastomosis. At this point , I had Anesthesia place an 18-Singaporean OG tube. This was able to pass into the Elvia limb where we clamped the Elvia limb and performed methylene blue dye test. This did significantly and we noted some blue dye from an area of one of the sutures that was placed initially. We then placed a U stitch bringing up the small bowel to the stomach to this area. Additional methylene blue dye test was performed in the same fashion and no extravasation of the contrast was noted. With a negative leak test, the blue dye was suctioned up by the anesthesiologist through the OG tube and then the OG tube was removed with ease. Review of the abdomen showed hemostasis was excellent. We did place a #10 JOSSUE drain at the gastrojejunostomy and brought out through the left lateral most port site. Abdomen was allowed to collapse and trocars removed under direct vision. All additional incisions were reapproximated with 4-0 Monocryl and subcuticular sutures and a 3-0 Prolene suture was utilized at the JOSSUE drain site. Sterile dressing was applied. The patient was woken up and transferred to the PACU in stable condition. [id number]/[facility] #: [id number] FRED
[2018-01-07] MEDS: Heparin VIAL(*) 5000 UNITS/ML VIAL (FIVE THOUSAND) SUBCUT SCH (06:05)
[2018-01-07] MEDS: Famotidine IV* 10 MG/ML 2 ML (20 mg) IV SLOW PU SCH (08:47)
[2018-01-07 12:12] VITALS: BP 153/77
== END 2018-01-07 14:10 | disposition home or self-care (01) | DRG 222 ==
LOC: AA 12:44 → SSU 19:32
PROVIDERS: ADMIT Surgery; ATTEND Surgery
PROC: 0DQ64ZZ Repair Stomach, Percutaneous Endoscopic Approach (ICD-10-PCS; 2018-01-05)
PROC: 0DQA4ZZ Repair Jejunum, Percutaneous Endoscopic Approach (ICD-10-PCS; principal; 2018-01-05 14:15)
DX: K95.89 Other complications of other bariatric procedure (principal); K28.9 Gastrojejunal ulcer, unspecified as acute or chronic, without hemorrhage or perforation; G47.33 Obstructive sleep apnea (adult) (pediatric); I10 Essential (primary) hypertension; Y83.2 Surgical operation with anastomosis, bypass or graft as the cause of abnormal reaction of the patient, or of later complication, without mention of misadventure at the time of the procedure; E66.9 Obesity, unspecified; Z68.31 Body mass index [BMI] 31.0-31.9, adult; Z80.7 Family history of other malignant neoplasms of lymphoid, hematopoietic and related tissues; Z91.030 Bee allergy status; Z88.6 Allergy status to analgesic agent; Z23 Encounter for immunization; Y92.9 Unspecified place or not applicable
CPT/HCPCS: 36415; 74246; 81025; 85025; 88307; 90686; C1776; J0690; J1100; J1170; J1644; J1885; J2250; J2405; J2704; J3010